=== PATIENT | female | born 1960 | race Caucasian/White ===

== ENCOUNTER 2017-01-24 16:38 | Emergency (ER) | payer OTHER ==
[~2017-01-24] VITALS: Ht 162.6 cm; Wt 52.5 kg
[2017-01-24 16:44] VITALS: Ht 162.6 cm; Wt 52.5 kg
[2017-01-24] MEDS ORDERED: IBUPROFEN 600 MG TAB PO ONE (17:30)
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
[2017-01-24] MEDS ORDERED: NAPR-260 PO (19:06)
[2017-01-24] MEDS ORDERED: HYDR-906 PO (19:06)
[2017-01-24] MEDS ORDERED: CYCL-319 PO (19:06)
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
== END 2017-01-24 19:27 | disposition home or self-care (01) ==
LOC: FTE 16:38
DX: M25.512 Pain in left shoulder (principal); M54.9 Dorsalgia, unspecified
CPT/HCPCS: 71010; Z7502